=== PATIENT | female | born 1985 | race Two or more races ===

== ENCOUNTER 2018-10-19 10:45 | Inpatient (IN) | payer OTHER ==
[~2018-10-19] VITALS: Ht 165.1 cm; Wt 73.9 kg
[2018-10-20] MEDS ORDERED: PRENATAL TABLE1 EAC2 PO (04:43)
== END 2018-10-22 11:49 | disposition home or self-care (01) | DRG 768 ==
LOC: OB/GYN 10-20 04:16 → LDR 10-20 04:16 → OB/GYN 10-20 04:45 → LDR 10-20 08:29 → OB/GYN 10-20 16:56 → LDR 10-29 10:45
PROVIDERS: ADMIT Specialist
PROC: 10E0XZZ Delivery of Products of Conception, External Approach (ICD-10-PCS; principal; 2018-10-20)
PROC: 0DQR0ZZ Repair Anal Sphincter, Open Approach (ICD-10-PCS; 2018-10-20)
PROC: 4A1HXCZ Monitoring of Products of Conception, Cardiac Rate, External Approach (ICD-10-PCS; 2018-10-20)
PROC: 4A033R1 Measurement of Arterial Saturation, Peripheral, Percutaneous Approach (ICD-10-PCS; 2018-10-20)
DX: O70.21 Third degree perineal laceration during delivery, IIIa (principal); O90.81 Anemia of the puerperium; Z37.0 Single live birth; Z3A.38 38 weeks gestation of pregnancy

== ENCOUNTER 2021-05-06 10:29 | Inpatient (IN) | payer OTHER ==
[~2021-05-06] VITALS: Ht 165.1 cm; Wt 73.5 kg
[~2021-05-06 10:29] MED LIST: PRENATAL TABLE1 EAC2 PO
== END 2021-05-08 13:58 | disposition home or self-care (01) | DRG 807 ==
LOC: SURG-SUITE 10:29 → LDR 10:29 → SURG-SUITE 16:13
PROVIDERS: ADMIT Specialist; ATTEND Specialist
PROC: 10E0XZZ Delivery of Products of Conception, External Approach (ICD-10-PCS; principal; 2021-05-06)
PROC: 0HQ9XZZ Repair Perineum Skin, External Approach (ICD-10-PCS; 2021-05-06)
PROC: 10907ZC Drainage of Amniotic Fluid, Therapeutic from Products of Conception, Via Natural or Artificial Opening (ICD-10-PCS; 2021-05-06)
PROC: 4A1HXFZ Monitoring of Products of Conception, Cardiac Rhythm, External Approach (ICD-10-PCS; 2021-05-06)
DX: O70.0 First degree perineal laceration during delivery (principal); Z37.0 Single live birth; Z3A.38 38 weeks gestation of pregnancy; Z20.822 Contact with and (suspected) exposure to COVID-19